=== PATIENT | male | born 1970 | race Caucasian/White ===

== ENCOUNTER 2023-01-06 09:13 | Day surgery (SDC) | payer OTHER ==
[~2023-01-06] VITALS: Ht 170.2 cm; Wt 88.5 kg
[2023-01-06] MEDS ORDERED: fentaNYL CITRATE/PF 100 MCG/2 ML AMP ONE (09:31)
[2023-01-06] MEDS ORDERED: DIPHENHYDRAMINE INJ 50 MG/ML VIAL ONE (09:31)
[2023-01-06 12:30] VITALS: O2SAT 97
[2023-01-06] MEDS: MIDAZOLAM HCL 5 MG/5 ML VIAL ONE ×2 (12:38→12:42)
[2023-01-06 15:32] VITALS: BP_SYST 142; PULSE 72; RESP 20
== END 2023-01-06 13:34 | disposition home or self-care (01) ==
LOC: SDS 09:13 → SMU 09:13 → SDS 13:34
PROVIDERS: ATTEND Internal Medicine
DX: M50.123 Cervical disc disorder at C6-C7 level with radiculopathy (principal); M54.41 Lumbago with sciatica, right side; M79.10 Myalgia, unspecified site; I10 Essential (primary) hypertension; E78.5 Hyperlipidemia, unspecified; Z79.899 Other long term (current) drug therapy
CPT/HCPCS: 62321; J1200; J2250; J3010; 76000